=== PATIENT | male | born 1960 | race Caucasian/White ===

== ENCOUNTER 2022-11-21 14:12 | Emergency (ER) | payer OTHER ==
[~2022-11-21] VITALS: Ht 182.9 cm; Wt 95.5 kg
[2022-11-21 14:24] VITALS: BP 143/92; PULSE 130; RESP 18; TEMP 98.5; O2SAT 94
== END 2022-11-21 15:33 ==
LOC: ER 14:14
DX: R00.0 Tachycardia, unspecified; J45.909 Unspecified asthma, uncomplicated
CPT/HCPCS: 99283